=== PATIENT | male | born 1960 | race Caucasian/White ===

== ENCOUNTER 2023-10-20 03:48 | Day surgery (SDC) | payer OTHER ==
[2023-10-12 15:55] VITALS: BMI 25.1
[2023-10-20 08:07] VITALS: RESP 16
[2023-10-20] MEDS ORDERED: FENTANYL CITRATE/PF 50 MCG/ML VIAL ONE (10:42)
[2023-10-20] MEDS ORDERED: MIDAZOLAM HCL 2 MG/2 ML SINGLE DOSE VIAL ONE (10:42)
[2023-10-20 11:14] VITALS: BP 109/69; PULSE 54; TEMP 97.7
== END 2023-10-20 11:57 | disposition home or self-care (01) ==
LOC: JASU-SURG 03:48
PROVIDERS: ATTEND Urology
PROC: 0TF3XZZ Fragmentation in Right Kidney Pelvis, External Approach (ICD-10-PCS; principal; 2023-10-20 10:00)
DX: N20.0 Calculus of kidney (principal)
CPT/HCPCS: 82962

== ENCOUNTER 2024-02-08 04:23 | Day surgery (SDC) | payer OTHER ==
[2024-01-20 13:37] VITALS: BMI 25.1
[2024-02-08] MEDS ORDERED: ONDANSETRON 4 MG/2 ML VIAL ONE (12:06)
[2024-02-08] MEDS ORDERED: MIDAZOLAM HCL 2 MG/2 ML SINGLE DOSE VIAL ONE (12:06)
[2024-02-08 13:16] VITALS: PULSE 55; RESP 18
[2024-02-08 14:33] VITALS: BP 130/66; TEMP 98.4
== END 2024-02-08 14:00 | disposition home or self-care (01) ==
LOC: JASU-SURG 04:23
PROVIDERS: ATTEND Urology
PROC: 0TF4XZZ Fragmentation in Left Kidney Pelvis, External Approach (ICD-10-PCS; principal; 2024-02-08 12:29)
DX: N20.0 Calculus of kidney (principal)
CPT/HCPCS: 82962